=== PATIENT | female | born 1985 ===

== ENCOUNTER 2018-06-16 17:49 | Emergency (ER) | payer OTHER ==
[2018-06-16 17:53] VITALS: BMI 20.9
[2018-06-16 17:55] VITALS: TEMP 98
[2018-06-16] MEDS ORDERED: Sodium Chloride 0.9% 1,000 ML IV STA (18:12)
--- NOTE | 2018-06-16 18:16 | ED PDOC ---
Arrival/HPI <Bryan Huang - Last Filed: 06/16/18 18:39> - General Historian: Patient - History of Present Illness Narrative History of Present Illness (Text): 06/16/18 18:13 33yo female with no pmhx who present with two days history of b/l lower back pain, right flank pain, hematuria and dysuria, chills. Patient reports history of similar symptoms 2years ago when she was treated with antibiotics for UTI. She denies fever, nausea, vomiting, diarrhea, constipation, melena, hematuria, any other complaint. <PattiBruna A - Last Filed: 06/16/18 19:30> - General Chief Complaint: Female Genitourinary Past Medical History - Provider Review Nursing Documentation Reviewed: Yes - Infectious Disease Hx of Infectious Diseases: None - Psychiatric Hx Substance Use: No - Anesthesia Hx Anesthesia: No <Bruna Armstrong A - Last Filed: 06/16/18 19:30> Family/Social History - Physician Review Nursing Documentation Reviewed: Yes Family/Social History: Unknown Family HX Smoking Status: Light Smoker < 10 Cigarettes Daily Hx Alcohol Use: Yes Frequency of alcohol use: Socially Hx Substance Use: No <Bruna Armstrong A - Last Filed: 06/16/18 19:30> Allergies/Home Meds <Bryan Huang - Last Filed: 06/16/18 18:39> <Bruna Armstrong A - Last Filed: 06/16/18 19:30> Allergies/Adverse Reactions: Allergies Penicillins Allergy (Verified 08/08/16 17:54) URTICARIA Review of Systems - Physician Review All systems were reviewed & negative as marked: Yes - Review of Systems Constitutional: Normal Eyes: Normal ENT: Normal Respiratory: Normal Cardiovascular: Normal Gastrointestinal: Normal Genitourinary Female: Dysuria, Hematuria Musculoskeletal: Back Pain Skin: Normal Neurological: Normal Endocrine: Normal Hemo/Lymphatic: Normal Psychiatric: Normal <Bruna Armstrong A - Last Filed: 06/16/18 19:30> Physical Exam Vital Signs Temp Pulse Resp BP Pulse Ox 06/16/18 18:31 18 100 06/16/18 17:55 98.0 F 90 18 111/72 <Bryan Huang - Last Filed: 06/16/18 18:39> Vital Signs Reviewed: Yes Vital Signs Temp Pulse Resp BP 06/16/18 17:55 98.0 F 90 18 111/72 Temperature: Afebrile Blood Pressure: Normal Pulse: Regular Respiratory Rate: Normal Appearance: Positive for: Well-Appearing, Non-Toxic, Comfortable Pain Distress: None Mental Status: Positive for: Alert and Oriented X 3 - Systems Exam Head: Present: Atraumatic, Normocephalic Pupils: Present: PERRL Extroacular Muscles: Present: EOMI Conjunctiva: Present: Normal Mouth: Present: Moist Mucous Membranes Neck: Present: Normal Range of Motion Respiratory/Chest: Present: Clear to Auscultation, Good Air Exchange. No: Respiratory Distress, Accessory Muscle Use Cardiovascular: Present: Regular Rate and Rhythm, Normal S1, S2. No: Murmurs Abdomen: Present: Tenderness (Suprapubic tenderness), Normal Bowel Sounds, Other (Soft\). No: Distention, Peritoneal Signs, Rebound, Guarding, McBurney's Point Tender, Rovsing's Sign Present Back: Present: Normal Inspection. No: CVA Tenderness, Midline Tenderness, Paraspinal Tenderness Upper Extremity: Present: Normal Inspection. No: Cyanosis, Edema Lower Extremity: Present: Normal Inspection. No: Edema Neurological: Present: GCS=15, CN II-XII Intact, Speech Normal Skin: Present: Warm, Dry, Normal Color. No: Rashes Psychiatric: Present: Alert, Oriented x 3, Normal Insight, Normal Concentration <Diru,Happiness A - Last Filed: 06/16/18 19:30> Medical Decision Making - Medication Orders Current Medication Orders: Sodium Chloride (Sodium Chloride 0.9%) 1,000 mls @ 999 mls/hr IV .Q1H1M STA Stop: 06/16/18 19:12 Last Admin: 06/16/18 18:17 Dose: 999 mls/hr eMAR Start Stop Document 06/16/18 18:17 RD (Rec: 06/16/18 18:17 RD [id number]) Intravenous Solution Start Date 06/16/18 Start Time 18:17 End Date 06/16/18 End time 19:17 Total Infusion Time 60 <Bryan Huang - Last Filed: 06/16/18 18:39> ED Course and Treatment: 06/16/18 19:28 PT present to ED for stated history. She was afebrile on presentation. She reported history of sepsis secondary to UTI s/p child . Labs UA 1L NS will reassess Labs was unremarkable without any leukocytosis. Pt had no CVAT. She have UTI. Treated and DC home with Levaquin. Advised to drink plenty of fluid and take Cranberry supplement TRT ED for any worsening symptoms - Medication Orders Current Medication Orders: Sodium Chloride (Sodium Chloride 0.9%) 1,000 mls @ 999 mls/hr IV .Q1H1M STA Stop: 06/16/18 19:12 <Bruna Armstrong A - Last Filed: 06/16/18 19:30> - PA / [employer] / Resident Statement / has reviewed & agrees with the documentation as recorded. <Bryan Huang - Last Filed: 06/16/18 18:39> Disposition/Present on Arrival <Bryan Huang - Last Filed: 06/16/18 18:39> - Present on Arrival Any Indicators Present on Arrival: No History of DVT/PE: No History of Uncontrolled Diabetes: No Urinary Catheter: No History of Decub. Ulcer: No History Surgical Site Infection Following: None - Disposition Have Diagnosis and Disposition been Completed?: Yes Disposition Time: 19:20 Patient Plan: Discharge <Bruna Armstrong A - Last Filed: 06/16/18 19:30> - Disposition Diagnosis: UTI (urinary tract infection) Disposition: HOME/ ROUTINE Patient Problems: Current Active Problems Problem Status Onset UTI (urinary tract infection) Acute Condition: STABLE Discharge Instructions (ExitCare): Urinary Tract Infections in Adults Additional Instructions: Follow up with your Doctor Drink plenty of fluid and take cranberry supplement Return to ED for worsening symptoms Prescriptions: levoFLOXacin [Levaquin] 500 mg PO DAILY #6 tab Phenazopyridine [Pyridium] 200 mg PO PC #6 tab Referrals: Emmie Dill MD [Medical Doctor] - Follow up with primary Forms: [employer] ([place])
[2018-06-16 18:31] VITALS: O2SAT 100
[2018-06-16 18:40] LABS: ALB/GLOB RATIO 1.3 (1.1-1.8); ALBUMIN 4.1 g/dL (3.0-4.8); ALT/SGPT 21 U/L (7-56); AST/SGOT 17 U/L (14-36); BLOOD UREA NITROGEN 10 mg/dL (7-21); CALCIUM 9.4 mg/dL (8.4-10.5); GFR NON-AFRICAN AMERICAN > 60
[2018-06-16 18:56] LABS: BASO # 0.02 K/mm3 (0.0-2.0); BASO % 0.2 % (0.0-3.0); EOS # 0.1 (0.0-0.7); EOS % 0.9 % (1.5-5.0); GRAN # 7.13 (1.4-6.5); GRAN % 74.5 % (50.0-68.0); HEMOGLOBIN 12.9 g/dL (12.0-16.0); LYMPH # 1.8 (1.2-3.4); MEAN CELL VOLUME 85.2 fl (80.0-105.0); MEAN CORPUSCULAR HEMOGLOBIN 26.9 pg (25.0-35.0); MEAN CORPUSCULAR HGB CONC 31.6 g/dl (31.0-37.0); MEAN PLATELET VOLUME 10.6 fl (7.0-11.0); MONO # 0.5 (0.1-0.6); MONO % 5.4 % (1.0-6.0); RBC 4.79 10^6/uL (3.5-6.1); RED CELL DISTRIBUTION WIDTH 14.9 % (11.5-14.5); WHITE BLOOD COUNT 9.6 10^3/uL (4.5-11.0)
[2018-06-16 18:56] LABS: URINE BILIRUBIN NEGATIVE (NEGATIVE); URINE BLOOD MODERATE (NEGATIVE); URINE GLUCOSE (UA) NEGATIVE (NEGATIVE); URINE LEUKOCYTE ESTERASE LARGE Leu/uL (NEGATIVE); URINE PROTEIN NEGATIVE mg/dL (<30 mg/dL); URINE UROBILINOGEN 0.2 E.U./dL (<1 E.U./dL)
[2018-06-16 18:58] LABS: INR 1.35; PARTIAL THROMBOPLASTIN TIME 26.5 Seconds (25.1-36.5); PROTHROMBIN TIME 15.5 SECONDS (9.4-12.5)
[2018-06-16 19:02] LABS: URINE APPEARANCE SL CLOUDY (CLEAR); URINE COLOR YELLOW (YELLOW)
[2018-06-16 19:15] LABS: URINE BACTERIA MOD (NEG)
[2018-06-16 19:18] LABS: URINE RBC 15 - 20 /hpf (0-2); URINE WBC 25 - 30 /hpf (0-6)
[2018-06-16] MEDS ORDERED: levoFLOXacin 500 MG TAB PO STA (19:19)
[2018-06-16 19:49] VITALS: BP 130/50; PULSE 70; RESP 14
== END 2018-06-16 19:37 | disposition home or self-care (01) ==
LOC: ED 17:49
DX: N39.0 Urinary tract infection, site not specified (principal)
CPT/HCPCS: 80053; 81001; 85025; 85610; 85730; 87086; 96361; 96374; 99284; J1885; J7030